=== PATIENT | female | born 1945 | race Caucasian/White ===

== ENCOUNTER 2022-03-06 23:54 | Inpatient (IN) | payer MEDICARE, MEDICAID ==
[~2022-03-06] VITALS: Ht 162.6 cm; Wt 87.1 kg
[~2022-03-06 23:54] MED LIST: ACET-784 PO; DIVA-80 PO; GLIP5TAB12 PO; INSNOV SQ; METF-446 PO; METO-558 PO; OMEP20 PO; OXYB10TA4 PO; SIMV10TA97 PO; TRAZ-186 PO
[2022-03-07 00:30] LABS: BASOPHILS % (AUTO) 0.7 % (0.0-2.0); EOSINOPHILS % (AUTO) 3.2 % (1.0-6.0); HEMATOCRIT 26.8 % (36-46); HEMOGLOBIN 8.9 g/dL (12.0-16.0); LYMPHOCYTES # (AUTO) 3.1 K/uL (1.0-4.8); LYMPHOCYTES % (AUTO) 33.6 % (22.0-44.0); MEAN CORPUSCULAR HEMOGLOBIN 29.7 pg (26.0-34.0); MEAN CORPUSCULAR VOLUME 90 fL (80-100); MONOCYTES # (AUTO) 0.6 K/uL (0.1-1.0); NEUTROPHILS # (AUTO) 5.2 K/uL (1.8-7.7); NEUTROPHILS % (AUTO) 56.5 % (40.0-70.0); PLATELET COUNT (AUTO) 321 K/uL (150-450); RED BLOOD CELL COUNT(AUTO) 2.98 MIL/uL (4.00-5.20); RED CELL DISTRIBUTION WIDTH 14.5 % (11.5-14.5)
[2022-03-07] MEDS ORDERED: RIVA20TA PO (00:32)
[2022-03-07] MEDS ORDERED: INSLAN SQ (00:32)
[2022-03-07] MEDS ORDERED: FAMO20 PO (00:32)
[2022-03-07] MEDS ORDERED: FOLI-130 PO (00:32)
[2022-03-07] MEDS ORDERED: SENN-31 PO (00:32)
[2022-03-07] MEDS ORDERED: THIA100T80 PO (00:32)
[2022-03-07] MEDS ORDERED: ARIP5TAB37 PO (00:32)
[2022-03-07] MEDS ORDERED: INSU100V39 SQ (00:32)
[2022-03-07] MEDS ORDERED: DOCU-350 PO (00:32)
[2022-03-07] MEDS ORDERED: ESCI-8 PO (00:32)
[2022-03-07] MEDS ORDERED: EMPA10TA PO (00:32)
[2022-03-07] MEDS ORDERED: ALLO-45 PO (00:32)
[2022-03-07] MEDS ORDERED: CHOL500013 PO (00:32)
[2022-03-07] MEDS ORDERED: CYAN500T56 PO (00:32)
[2022-03-07] MEDS ORDERED: SIMV-261 PO (00:32)
[2022-03-07] MEDS ORDERED: FERR325T27 PO (00:32)
[2022-03-07 00:45] LABS: ALANINE AMINOTRANSFERASE 29 U/L (12-78); ALBUMIN 2.9 g/dL (3.4-5.0); ALKALINE PHOSPHATASE 110 U/L (46-116); ANION GAP 10 mmol/L (8-16); ASPARTATE AMINOTRANSFERASE 12 U/L (15-37); BILIRUBIN,TOTAL 0.1 mg/dL (0.1-1.0); CARBON DIOXIDE 20 mmol/L (22-29); CHLORIDE 106 mmol/L (98-107); CREATININE 0.87 mg/dL (0.60-1.30); GLUCOSE,RANDOM 133 mg/dL (70-110); PHOSPHORUS 3.9 mg/dL (2.5-4.9); SODIUM SERUM 136 mmol/L (136-145); UREA NITROGEN, BLOOD 42 mg/dL (7-18)
[2022-03-07 00:51] LABS: GLOMERULAR FILTR. RATE CALC > 60 mL/min (>60)
[2022-03-07 00:52] LABS: POTASSIUM 6.3 mmol/L (3.5-5.1)
[2022-03-07] MEDS ORDERED: CALCIUM GLUCONATE 100 MG/ML 10 ML IVP ONE ×3 (01:00→13:45)
[2022-03-07] MEDS ORDERED: INSULIN REGULAR, HUMAN 100 UNITS/ML IVP ONE ×2 (01:00→09:45)
[2022-03-07] MEDS ORDERED: FUROSEMIDE 20 MG/2 ML VIAL IVP ONE (01:00)
[2022-03-07] MEDS ORDERED: DEXTROSE 50%-WATER 25 GM/50 ML SYRINGE IVP ONE ×2 (01:00→09:45)
[2022-03-07] MEDS ORDERED: ALBUTEROL SULFATE 5 MG/ML 20 ML NEB SOLN [BULK] NEB ONE ×2 (01:00→09:45)
[2022-03-07 01:24] LABS: COVID AG,FIA SOURCE NASAL SWAB
[2022-03-07 01:42] LABS: INFLUENZA TYPE A NEGATIVE FOR TYPE A (NEGATIVE); INFLUENZA TYPE B NEGATIVE FOR TYPE B (NEGATIVE)
[2022-03-07] MEDS ORDERED: 0.9% SODIUM CHLORIDE 10 ML SYRINGE IVP PRN (02:00)
[2022-03-07] MEDS ORDERED: ONDANSETRON HCL 4 MG/2 ML VIAL IVP PRN ×2 (02:00→02:45)
[2022-03-07] MEDS ORDERED: ONDANSETRON HCL 4 MG/2 ML VIAL IVP ONE (02:00)
[2022-03-07] MEDS ORDERED: ACETAMINOPHEN 325 MG TABLET PO PRN (02:00)
[2022-03-07] MEDS ORDERED: DEXTROSE 50%-WATER 25 GM/50 ML SYRINGE IVP PRN (03:00)
[2022-03-07 03:14] VITALS: BP 108/50
[2022-03-07] MEDS: SODIUM CHLORIDE 0.9% 1,000 ML IV SCH ×2 (03:49→17:53)
[2022-03-07] MEDS: INSULIN LISPRO 100 UNITS/ML SQ PRN ×4 (06:37→21:19)
[2022-03-07 07:44] VITALS: BP 118/76
[2022-03-07] MEDS ORDERED: HEPARIN SODIUM,PORCINE 5,000 UNITS/ML VIAL SQ SCH (08:00)
[2022-03-07] MEDS: FAMOTIDINE 20 MG TABLET PO SCH ×2 (08:09→21:27)
[2022-03-07] MEDS: FOLIC ACID 1 MG TABLET PO SCH (08:09)
[2022-03-07] MEDS: FERROUS SULFATE 325 MG EC TABLET PO SCH ×3 (08:09→17:52)
[2022-03-07] MEDS: DOCUSATE SODIUM 250 MG CAPSULE PO SCH ×2 (08:09→21:28)
[2022-03-07] MEDS: THIAMINE 100 MG TABLET PO SCH ×2 (08:09→21:27)
[2022-03-07 08:10] LABS: % IRON SATURATION 15.9 % (22-44)
[2022-03-07] MEDS: OXYBUTYNIN CHLORIDE 5 MG ER TABLET PO SCH (08:10)
[2022-03-07] MEDS: CYANOCOBALAMIN 500 MCG TABLET PO SCH (08:10)
[2022-03-07] MEDS: ALLOPURINOL 300 MG TABLET PO SCH (08:10)
[2022-03-07] MEDS: SENNA/DOCUSATE SODIUM 8.6-50 MG TABLET PO SCH ×2 (08:11→21:28)
[2022-03-07] MEDS: ESCITALOPRAM OXALATE 10 MG TABLET PO SCH (08:11)
[2022-03-07 08:17] LABS: CALCIUM, TOTAL 9.3 mg/dL (8.8-10.5); CREATININE 0.95 mg/dL (0.60-1.30)
[2022-03-07 08:24] LABS: POTASSIUM 6.8 mmol/L (3.5-5.1)
[2022-03-07] MEDS ORDERED: SODIUM POLYSTYRENE SULFONATE 15 GM/60 ML SUSPENSION BOTTLE PO ONE (09:45)
[2022-03-07] MEDS ORDERED: ALBUTEROL SULFATE 2.5 MG/0.5 ML NEB SOLUTION NEB ONE (10:15)
[2022-03-07] MEDS ORDERED: 0.9% SODIUM CHLORIDE 5 ML NEB SOLUTION NEB ONE (10:36)
[2022-03-07 11:19] VITALS: BP 112/66
[2022-03-07 11:57] LABS: GLUCOMETER DEV NAME(LOC) 5S.1B; GLUCOSE,POINT OF CARE 195 MG/DL (70-110)
[2022-03-07 11:57] LABS: GLUCOMETER DEV NAME(LOC) 5S.1B; GLUCOSE,POINT OF CARE 147 MG/DL (70-110)
[2022-03-07] MEDS: INSULIN GLARGINE,HUM.REC.ANLOG 100 UNITS/ML SQ SCH (12:56)
[2022-03-07] MEDS: MAGNESIUM CITRATE 300 ML ORAL SOLUTION PO SCH ×2 (13:01→21:28)
[2022-03-07 13:26] LABS: CALCIUM, TOTAL 9.2 mg/dL (8.8-10.5); CREATININE 1.05 mg/dL (0.60-1.30)
[2022-03-07 13:29] LABS: POTASSIUM 6.8 mmol/L (3.5-5.1)
[2022-03-07] MEDS ORDERED: SODIUM ZIRCONIUM CYCLOSILICATE 5 GM POWDER PACKET PO ONE (13:45)
[2022-03-07 16:04] VITALS: BP 122/59
[2022-03-07] MEDS: RIVAROXABAN 20 MG TABLET PO SCH (17:52)
[2022-03-07 18:21] LABS: GLUCOMETER DEV NAME(LOC) 5N.3; GLUCOSE,POINT OF CARE 282 MG/DL (70-110)
[2022-03-07 18:21] LABS: GLUCOMETER DEV NAME(LOC) 5N.3; GLUCOSE,POINT OF CARE 185 MG/DL (70-110)
[2022-03-07 18:25] LABS: CALCIUM, TOTAL 9.3 mg/dL (8.8-10.5); POTASSIUM 5.9 mmol/L (3.5-5.1)
[2022-03-07 18:35] LABS: CREATININE,URINE RANDOM 40.9 mg/dL (30.0-125.0)
[2022-03-07 20:38] VITALS: BP 131/63
[2022-03-07] MEDS: TraZODone HCL 100 MG TABLET PO SCH (21:27)
[2022-03-07] MEDS: ARIPiprazole 5 MG TABLET PO SCH (21:27)
[2022-03-07] MEDS: METOPROLOL SUCCINATE 50 MG ER TABLET PO SCH (21:28)
[2022-03-07] MEDS: SIMVASTATIN 40 MG TABLET PO SCH (21:28)
[2022-03-07 23:11] LABS: GLUCOMETER DEV NAME(LOC) 5S.1B; GLUCOSE,POINT OF CARE 162 MG/DL (70-110)
[2022-03-08 00:30] VITALS: BP 126/60
[2022-03-08 04:25] VITALS: BP 124/64
[2022-03-08 06:59] LABS: BASOPHILS % (AUTO) 0.6 % (0.0-2.0); EOSINOPHILS % (AUTO) 3.3 % (1.0-6.0); HEMATOCRIT 24.6 % (36-46); HEMOGLOBIN 8.2 g/dL (12.0-16.0); LYMPHOCYTES # (AUTO) 2.6 K/uL (1.0-4.8); LYMPHOCYTES % (AUTO) 35.4 % (22.0-44.0); MEAN CORPUSCULAR HEMOGLOBIN 29.8 pg (26.0-34.0); MEAN CORPUSCULAR HGB CONC 33.2 G/dL (31.0-37.0); MEAN CORPUSCULAR VOLUME 90 fL (80-100); MONOCYTES # (AUTO) 0.5 K/uL (0.1-1.0); MONOCYTES % (AUTO) 7.1 % (2.0-9.0); NEUTROPHILS % (AUTO) 53.6 % (40.0-70.0); PLATELET COUNT (AUTO) 304 K/uL (150-450); RED BLOOD CELL COUNT(AUTO) 2.74 MIL/uL (4.00-5.20); RED CELL DISTRIBUTION WIDTH 14.8 % (11.5-14.5)
[2022-03-08 07:20] VITALS: BP 119/77
[2022-03-08 07:24] LABS: ALANINE AMINOTRANSFERASE 29 U/L (12-78); ALBUMIN 2.4 g/dL (3.4-5.0); ALKALINE PHOSPHATASE 93 U/L (46-116); ANION GAP 6 mmol/L (8-16); ASPARTATE AMINOTRANSFERASE 17 U/L (15-37); BILIRUBIN,TOTAL 0.1 mg/dL (0.1-1.0); CALCIUM, TOTAL 8.3 mg/dL (8.8-10.5); CARBON DIOXIDE 25 mmol/L (22-29); CHLORIDE 109 mmol/L (98-107); CREATININE 0.77 mg/dL (0.60-1.30); GLOMERULAR FILTR. RATE CALC > 60 mL/min (>60); GLUCOSE,RANDOM 128 mg/dL (70-110); POTASSIUM 5.2 mmol/L (3.5-5.1); SODIUM SERUM 140 mmol/L (136-145); TOTAL PROTEIN, SERUM 6.1 g/dL (6.4-8.2); UREA NITROGEN, BLOOD 30 mg/dL (7-18)
[2022-03-08 07:34] LABS: LACTATE DEHYDROGENASE 109 U/L (81-234)
[2022-03-08] MEDS ORDERED: SODIUM ZIRCONIUM CYCLOSILICATE 5 GM POWDER PACKET PO ONE (09:00)
[2022-03-08] MEDS: ALLOPURINOL 300 MG TABLET PO SCH (09:07)
[2022-03-08] MEDS: DOCUSATE SODIUM 250 MG CAPSULE PO SCH ×2 (09:07→21:18)
[2022-03-08] MEDS: FAMOTIDINE 20 MG TABLET PO SCH ×2 (09:08→21:17)
[2022-03-08] MEDS: FERROUS SULFATE 325 MG EC TABLET PO SCH ×3 (09:08→17:58)
[2022-03-08] MEDS: ESCITALOPRAM OXALATE 10 MG TABLET PO SCH (09:08)
[2022-03-08] MEDS: THIAMINE 100 MG TABLET PO SCH ×2 (09:09→21:18)
[2022-03-08] MEDS: SENNA/DOCUSATE SODIUM 8.6-50 MG TABLET PO SCH ×2 (09:09→21:00)
[2022-03-08] MEDS: OXYBUTYNIN CHLORIDE 5 MG ER TABLET PO SCH (09:09)
[2022-03-08] MEDS: FOLIC ACID 1 MG TABLET PO SCH (09:09)
[2022-03-08] MEDS: INSULIN GLARGINE,HUM.REC.ANLOG 100 UNITS/ML SQ SCH (09:19)
[2022-03-08] MEDS: CYANOCOBALAMIN 500 MCG TABLET PO SCH (09:26)
[2022-03-08] MEDS: ACETAMINOPHEN 325 MG TABLET PO PRN (11:11)
[2022-03-08 11:41] LABS: GLUCOMETER DEV NAME(LOC) 5S.2B; GLUCOSE,POINT OF CARE 202 MG/DL (70-110)
[2022-03-08 11:41] LABS: GLUCOMETER DEV NAME(LOC) 5S.2B; GLUCOSE,POINT OF CARE 128 MG/DL (70-110)
[2022-03-08] MEDS: MAGNESIUM CITRATE 300 ML ORAL SOLUTION PO SCH (11:46)
[2022-03-08] MEDS: INSULIN LISPRO 100 UNITS/ML SQ PRN ×3 (11:49→21:37)
[2022-03-08 11:55] VITALS: BP 116/55
[2022-03-08 16:24] VITALS: BP 99/40
[2022-03-08] MEDS: RIVAROXABAN 20 MG TABLET PO SCH (17:58)
[2022-03-08 20:54] VITALS: BP 102/44
[2022-03-08] MEDS: METOPROLOL SUCCINATE 50 MG ER TABLET PO SCH ×2 (21:00→21:17)
[2022-03-08] MEDS: TraZODone HCL 100 MG TABLET PO SCH (21:18)
[2022-03-08] MEDS: ARIPiprazole 5 MG TABLET PO SCH (21:18)
[2022-03-08] MEDS: SIMVASTATIN 40 MG TABLET PO SCH (21:18)
[2022-03-09] VITALS (7 sets, daily range): BP systolic 96–120; BP diastolic 45–71
[2022-03-09 04:52] LABS: GLUCOMETER DEV NAME(LOC) 5N.1C; GLUCOSE,POINT OF CARE 279 MG/DL (70-110)
[2022-03-09 04:52] LABS: GLUCOMETER DEV NAME(LOC) 5N.1C; GLUCOSE,POINT OF CARE 170 MG/DL (70-110)
[2022-03-09 06:16] LABS: GLUCOMETER DEV NAME(LOC) 5N.3; GLUCOSE,POINT OF CARE 187 MG/DL (70-110)
[2022-03-09] MEDS: INSULIN LISPRO 100 UNITS/ML SQ PRN ×4 (06:33→21:37)
[2022-03-09 07:06] LABS: ANION GAP 6 mmol/L (8-16); CALCIUM, TOTAL 8.9 mg/dL (8.8-10.5); CARBON DIOXIDE 26 mmol/L (22-29); CHLORIDE 107 mmol/L (98-107); CREATININE 0.74 mg/dL (0.60-1.30); GLUCOSE,RANDOM 163 mg/dL (70-110); POTASSIUM 4.9 mmol/L (3.5-5.1); SODIUM SERUM 139 mmol/L (136-145); UREA NITROGEN, BLOOD 30 mg/dL (7-18)
[2022-03-09 07:06] LABS: GLUCOMETER DEV NAME(LOC) 5S.1B; GLUCOSE,POINT OF CARE 165 MG/DL (70-110)
[2022-03-09 07:07] LABS: GLOMERULAR FILTR. RATE CALC > 60 mL/min (>60)
[2022-03-09] MEDS: SENNA/DOCUSATE SODIUM 8.6-50 MG TABLET PO SCH ×2 (08:39→21:36)
[2022-03-09] MEDS: CYANOCOBALAMIN 500 MCG TABLET PO SCH (08:39)
[2022-03-09] MEDS: OXYBUTYNIN CHLORIDE 5 MG ER TABLET PO SCH (08:39)
[2022-03-09] MEDS: DOCUSATE SODIUM 250 MG CAPSULE PO SCH ×2 (08:40→21:36)
[2022-03-09] MEDS: THIAMINE 100 MG TABLET PO SCH ×2 (08:40→21:36)
[2022-03-09] MEDS: FAMOTIDINE 20 MG TABLET PO SCH ×2 (08:40→21:36)
[2022-03-09] MEDS: FERROUS SULFATE 325 MG EC TABLET PO SCH ×3 (08:40→17:50)
[2022-03-09] MEDS: ESCITALOPRAM OXALATE 10 MG TABLET PO SCH (08:40)
[2022-03-09] MEDS: FOLIC ACID 1 MG TABLET PO SCH (08:40)
[2022-03-09] MEDS: INSULIN GLARGINE,HUM.REC.ANLOG 100 UNITS/ML SQ SCH (08:41)
[2022-03-09] MEDS: ALLOPURINOL 300 MG TABLET PO SCH (08:45)
[2022-03-09] MEDS: RIVAROXABAN 20 MG TABLET PO SCH (17:50)
[2022-03-09 18:37] LABS: GLUCOMETER DEV NAME(LOC) 5S.1B; GLUCOSE,POINT OF CARE 170 MG/DL (70-110)
[2022-03-09 18:41] LABS: GLUCOMETER DEV NAME(LOC) 5S.2B; GLUCOSE,POINT OF CARE 295 MG/DL (70-110)
[2022-03-09 18:41] LABS: GLUCOMETER DEV NAME(LOC) 5S.2B; GLUCOSE,POINT OF CARE 217 MG/DL (70-110)
[2022-03-09] MEDS: TraZODone HCL 100 MG TABLET PO SCH (21:36)
[2022-03-09] MEDS: ARIPiprazole 5 MG TABLET PO SCH (21:36)
[2022-03-09] MEDS: SIMVASTATIN 40 MG TABLET PO SCH (21:36)
[2022-03-09] MEDS: METOPROLOL SUCCINATE 50 MG ER TABLET PO SCH (21:38)
[2022-03-09 23:26] LABS: GLUCOMETER DEV NAME(LOC) 5N.1C; GLUCOSE,POINT OF CARE 233 MG/DL (70-110)
[2022-03-10 03:36] VITALS: BP 122/72
[2022-03-10 06:51] LABS: GLUCOMETER DEV NAME(LOC) 5N.1C; GLUCOSE,POINT OF CARE 142 MG/DL (70-110)
[2022-03-10 07:11] VITALS: BP 117/50
[2022-03-10] MEDS: DOCUSATE SODIUM 250 MG CAPSULE PO SCH ×2 (08:23→21:31)
[2022-03-10] MEDS: THIAMINE 100 MG TABLET PO SCH ×2 (08:23→21:30)
[2022-03-10] MEDS: SENNA/DOCUSATE SODIUM 8.6-50 MG TABLET PO SCH ×2 (08:23→21:31)
[2022-03-10] MEDS: ESCITALOPRAM OXALATE 10 MG TABLET PO SCH (08:24)
[2022-03-10] MEDS: FOLIC ACID 1 MG TABLET PO SCH (08:25)
[2022-03-10] MEDS: FAMOTIDINE 20 MG TABLET PO SCH ×2 (08:25→21:31)
[2022-03-10] MEDS: OXYBUTYNIN CHLORIDE 5 MG ER TABLET PO SCH (08:25)
[2022-03-10] MEDS: ALLOPURINOL 300 MG TABLET PO SCH (08:25)
[2022-03-10] MEDS: CYANOCOBALAMIN 500 MCG TABLET PO SCH (08:25)
[2022-03-10] MEDS: FERROUS SULFATE 325 MG EC TABLET PO SCH ×3 (08:25→17:48)
[2022-03-10] MEDS: INSULIN GLARGINE,HUM.REC.ANLOG 100 UNITS/ML SQ SCH (08:27)
[2022-03-10 11:24] VITALS: BP 114/48
[2022-03-10] MEDS: INSULIN LISPRO 100 UNITS/ML SQ PRN ×3 (12:22→17:50)
[2022-03-10] MEDS: ACETAMINOPHEN 325 MG TABLET PO PRN ×2 (14:39→21:30)
[2022-03-10 15:23] VITALS: BP 129/50
[2022-03-10] MEDS: RIVAROXABAN 20 MG TABLET PO SCH (17:57)
[2022-03-10 20:12] VITALS: BP 136/65
[2022-03-10 20:31] LABS: GLUCOMETER DEV NAME(LOC) 5N.1C; GLUCOSE,POINT OF CARE 196 MG/DL (70-110)
[2022-03-10 20:56] LABS: GLUCOMETER DEV NAME(LOC) 5S.1B; GLUCOSE,POINT OF CARE 285 MG/DL (70-110)
[2022-03-10] MEDS: METOPROLOL SUCCINATE 50 MG ER TABLET PO SCH (21:29)
[2022-03-10] MEDS: TraZODone HCL 100 MG TABLET PO SCH (21:29)
[2022-03-10] MEDS: ETHYL ALCOHOL 62% ANTISEPTIC NASAL SANITIZER 0.6 ML AMPUL NASAL SCH (21:29)
[2022-03-10] MEDS: ARIPiprazole 5 MG TABLET PO SCH (21:29)
[2022-03-10] MEDS: SIMVASTATIN 40 MG TABLET PO SCH (21:31)
[2022-03-11 00:04] VITALS: BP 126/55
[2022-03-11 04:23] VITALS: BP 113/61
[2022-03-11 08:09] VITALS: BP 117/57
[2022-03-11] MEDS: DOCUSATE SODIUM 250 MG CAPSULE PO SCH ×2 (09:53→20:30)
[2022-03-11] MEDS: OXYBUTYNIN CHLORIDE 5 MG ER TABLET PO SCH (09:53)
[2022-03-11] MEDS: SENNA/DOCUSATE SODIUM 8.6-50 MG TABLET PO SCH ×2 (09:53→20:31)
[2022-03-11] MEDS: ALLOPURINOL 300 MG TABLET PO SCH (09:53)
[2022-03-11] MEDS: FERROUS SULFATE 325 MG EC TABLET PO SCH ×3 (09:53→17:49)
[2022-03-11] MEDS: ETHYL ALCOHOL 62% ANTISEPTIC NASAL SANITIZER 0.6 ML AMPUL NASAL SCH ×2 (09:54→20:30)
[2022-03-11] MEDS: FOLIC ACID 1 MG TABLET PO SCH (09:54)
[2022-03-11] MEDS: FAMOTIDINE 20 MG TABLET PO SCH ×2 (09:54→20:31)
[2022-03-11] MEDS: CYANOCOBALAMIN 500 MCG TABLET PO SCH (09:54)
[2022-03-11] MEDS: THIAMINE 100 MG TABLET PO SCH ×2 (09:54→20:31)
[2022-03-11] MEDS: ESCITALOPRAM OXALATE 10 MG TABLET PO SCH (09:54)
[2022-03-11] MEDS: INSULIN GLARGINE,HUM.REC.ANLOG 100 UNITS/ML SQ SCH (09:59)
[2022-03-11] MEDS: INSULIN LISPRO 100 UNITS/ML SQ PRN ×3 (11:54→21:27)
[2022-03-11 16:04] VITALS: BP 117/51
[2022-03-11 16:15] LABS: APPEARANCE,URINE HAZY (CLEAR); BILIRUBIN,URINE NEGATIVE (NEGATIVE); GLUCOSE, URINE (UA) >=1000 mg/dL (NEGATIVE); KETONES,URINE NEGATIVE (NEGATIVE); LEUKOCYTE ESTERASE ,URINE LARGE (NEGATIVE); NITRATE,URINE POSITIVE (NEGATIVE); OCCULT BLOOD,URINE MODERATE (NEGATIVE); PH,URINE 8.5 (5.0-8.0); PROTEIN,URINE 30-70 mg/dL (NEGATIVE); SPECIFIC GRAVITIY, URINE 1.012 (1.003-1.030); UROBILINOGEN,URINE <=1.0 mg/dL (<=1.0)
[2022-03-11 16:21] LABS: BACTERIA,URINE Many /HPF (None Seen); RBC,URINE 26-50 /HPF (0-2); SQUAMOUS EPITHELIAL CELL,UR Rare /LPF (None Seen); TRIPLE PHOSPHATE CRYSTAL,UR Moderate /LPF (None Seen); WBC,URINE 26-50 /HPF (0-5)
[2022-03-11] MEDS: RIVAROXABAN 20 MG TABLET PO SCH (17:49)
[2022-03-11 18:41] LABS: GLUCOMETER DEV NAME(LOC) 5N.3; GLUCOSE,POINT OF CARE 264 MG/DL (70-110)
[2022-03-11 18:41] LABS: GLUCOMETER DEV NAME(LOC) 5N.3; GLUCOSE,POINT OF CARE 292 MG/DL (70-110)
[2022-03-11 20:00] VITALS: BP 138/64
[2022-03-11] MEDS: ARIPiprazole 5 MG TABLET PO SCH (20:31)
[2022-03-11] MEDS: TraZODone HCL 100 MG TABLET PO SCH (20:31)
[2022-03-11] MEDS: SIMVASTATIN 40 MG TABLET PO SCH (20:31)
[2022-03-12 00:15] VITALS: BP 128/74
[2022-03-12 00:41] LABS: GLUCOMETER DEV NAME(LOC) 5S.1B; GLUCOSE,POINT OF CARE 217 MG/DL (70-110)
[2022-03-12 00:41] LABS: GLUCOMETER DEV NAME(LOC) 5S.1B; GLUCOSE,POINT OF CARE 368 MG/DL (70-110)
[2022-03-12 03:21] LABS: GLUCOMETER DEV NAME(LOC) 5N.1C; GLUCOSE,POINT OF CARE 138 MG/DL (70-110)
[2022-03-12 04:30] VITALS: BP 129/64
[2022-03-12 07:21] LABS: GLUCOMETER DEV NAME(LOC) 5S.1B; GLUCOSE,POINT OF CARE 137 MG/DL (70-110)
[2022-03-12 07:43] VITALS: BP 134/54
[2022-03-12] MEDS: CYANOCOBALAMIN 500 MCG TABLET PO SCH (08:23)
[2022-03-12] MEDS: OXYBUTYNIN CHLORIDE 5 MG ER TABLET PO SCH (08:23)
[2022-03-12] MEDS: FOLIC ACID 1 MG TABLET PO SCH (08:23)
[2022-03-12] MEDS: ETHYL ALCOHOL 62% ANTISEPTIC NASAL SANITIZER 0.6 ML AMPUL NASAL SCH ×2 (08:23→21:24)
[2022-03-12] MEDS: ALLOPURINOL 300 MG TABLET PO SCH (08:23)
[2022-03-12] MEDS: FERROUS SULFATE 325 MG EC TABLET PO SCH ×3 (08:23→17:35)
[2022-03-12] MEDS: FAMOTIDINE 20 MG TABLET PO SCH ×2 (08:23→21:23)
[2022-03-12] MEDS: SENNA/DOCUSATE SODIUM 8.6-50 MG TABLET PO SCH ×2 (08:23→21:23)
[2022-03-12] MEDS: THIAMINE 100 MG TABLET PO SCH ×2 (08:24→21:23)
[2022-03-12] MEDS: DOCUSATE SODIUM 250 MG CAPSULE PO SCH ×2 (08:24→21:24)
[2022-03-12] MEDS: ESCITALOPRAM OXALATE 10 MG TABLET PO SCH (08:24)
[2022-03-12] MEDS: INSULIN GLARGINE,HUM.REC.ANLOG 100 UNITS/ML SQ SCH (08:30)
[2022-03-12 11:12] VITALS: BP 117/57
[2022-03-12] MEDS: CIPROFLOXACIN HCL 500 MG TABLET PO SCH ×2 (11:56→21:23)
[2022-03-12] MEDS: INSULIN LISPRO 100 UNITS/ML SQ PRN ×3 (11:59→21:25)
[2022-03-12 14:39] LABS: ANION GAP 8 mmol/L (8-16); CARBON DIOXIDE 25 mmol/L (22-29); CHLORIDE 103 mmol/L (98-107); CREATININE 0.86 mg/dL (0.60-1.30); GLUCOSE,RANDOM 314 mg/dL (70-110); PHOSPHORUS 3.8 mg/dL (2.5-4.9); POTASSIUM 4.1 mmol/L (3.5-5.1); SODIUM SERUM 136 mmol/L (136-145); UREA NITROGEN, BLOOD 26 mg/dL (7-18)
[2022-03-12 14:40] LABS: GLOMERULAR FILTR. RATE CALC > 60 mL/min (>60)
[2022-03-12 15:46] VITALS: BP 125/58
[2022-03-12] MEDS: RIVAROXABAN 20 MG TABLET PO SCH (17:36)
[2022-03-12 18:01] LABS: GLUCOMETER DEV NAME(LOC) 5S.2B; GLUCOSE,POINT OF CARE 176 MG/DL (70-110)
[2022-03-12 18:02] LABS: GLUCOMETER DEV NAME(LOC) 5S.2B; GLUCOSE,POINT OF CARE 252 MG/DL (70-110)
[2022-03-12 20:03] VITALS: BP 118/52
[2022-03-12 20:12] LABS: GLUCOMETER DEV NAME(LOC) 5N.3; GLUCOSE,POINT OF CARE 236 MG/DL (70-110)
[2022-03-12] MEDS: SIMVASTATIN 40 MG TABLET PO SCH (21:23)
[2022-03-12] MEDS: TraZODone HCL 100 MG TABLET PO SCH (21:23)
[2022-03-12] MEDS: ARIPiprazole 5 MG TABLET PO SCH (21:24)
[2022-03-12 21:56] LABS: GLUCOMETER DEV NAME(LOC) 5N.1C; GLUCOSE,POINT OF CARE 224 MG/DL (70-110)
[2022-03-13] VITALS (7 sets, daily range): BP systolic 107–131; BP diastolic 48–78
[2022-03-13] MEDS: INSULIN LISPRO 100 UNITS/ML SQ PRN ×4 (06:14→21:12)
[2022-03-13 06:31] LABS: BASOPHILS % (AUTO) 0.8 % (0.0-2.0); EOSINOPHILS % (AUTO) 3.6 % (1.0-6.0); HEMATOCRIT 27.2 % (36-46); LYMPHOCYTES # (AUTO) 2.7 K/uL (1.0-4.8); LYMPHOCYTES % (AUTO) 35.3 % (22.0-44.0); MEAN CORPUSCULAR HEMOGLOBIN 29.6 pg (26.0-34.0); MEAN CORPUSCULAR VOLUME 90 fL (80-100); MONOCYTES # (AUTO) 0.5 K/uL (0.1-1.0); MONOCYTES % (AUTO) 6.1 % (2.0-9.0); NEUTROPHILS # (AUTO) 4.2 K/uL (1.8-7.7); NEUTROPHILS % (AUTO) 54.2 % (40.0-70.0); PLATELET COUNT (AUTO) 338 K/uL (150-450); RED BLOOD CELL COUNT(AUTO) 3.04 MIL/uL (4.00-5.20); RED CELL DISTRIBUTION WIDTH 14.3 % (11.5-14.5)
[2022-03-13 06:46] LABS: GLUCOMETER DEV NAME(LOC) 5N.3; GLUCOSE,POINT OF CARE 183 MG/DL (70-110)
[2022-03-13 06:50] LABS: MAGNESIUM 1.5 mg/dL (1.80-2.40); PHOSPHORUS 4.2 mg/dL (2.5-4.9)
[2022-03-13] MEDS ORDERED: MAGNESIUM SULFATE 2 GM/WATER 50 ML IV ONE (08:30)
[2022-03-13] MEDS ORDERED: MAGNESIUM OXIDE 400 MG TABLET PO ONE ×2 (08:45→15:15)
[2022-03-13 09:35] LABS: CALCIUM, TOTAL 9.7 mg/dL (8.8-10.5); CREATININE 1.07 mg/dL (0.60-1.30); POTASSIUM 4.8 mmol/L (3.5-5.1)
[2022-03-13] MEDS: ETHYL ALCOHOL 62% ANTISEPTIC NASAL SANITIZER 0.6 ML AMPUL NASAL SCH ×2 (09:50→21:03)
[2022-03-13] MEDS: FERROUS SULFATE 325 MG EC TABLET PO SCH ×3 (09:50→17:56)
[2022-03-13] MEDS: CIPROFLOXACIN HCL 500 MG TABLET PO SCH ×2 (09:50→21:02)
[2022-03-13] MEDS: OXYBUTYNIN CHLORIDE 5 MG ER TABLET PO SCH (09:50)
[2022-03-13] MEDS: FOLIC ACID 1 MG TABLET PO SCH (10:05)
[2022-03-13] MEDS: ESCITALOPRAM OXALATE 10 MG TABLET PO SCH (10:05)
[2022-03-13] MEDS: FAMOTIDINE 20 MG TABLET PO SCH ×2 (10:05→21:02)
[2022-03-13] MEDS: DOCUSATE SODIUM 250 MG CAPSULE PO SCH ×2 (10:05→21:02)
[2022-03-13] MEDS: THIAMINE 100 MG TABLET PO SCH ×2 (10:06→21:02)
[2022-03-13] MEDS: ALLOPURINOL 300 MG TABLET PO SCH (10:06)
[2022-03-13] MEDS: SENNA/DOCUSATE SODIUM 8.6-50 MG TABLET PO SCH ×2 (10:06→21:02)
[2022-03-13] MEDS: CYANOCOBALAMIN 500 MCG TABLET PO SCH (10:06)
[2022-03-13] MEDS ORDERED: MAGNESIUM SULFATE 3 GM in DEXTROSE 5%-WATER 100 ML IV ONE (10:45)
[2022-03-13] MEDS: INSULIN GLARGINE,HUM.REC.ANLOG 100 UNITS/ML SQ SCH (12:30)
[2022-03-13] MEDS: RIVAROXABAN 20 MG TABLET PO SCH (17:56)
[2022-03-13] MEDS ORDERED: BISACODYL 10 MG RECTAL RECTAL SUPPOSITORY PR PRN (20:15)
[2022-03-13] MEDS: TraZODone HCL 100 MG TABLET PO SCH (21:02)
[2022-03-13] MEDS: SIMVASTATIN 40 MG TABLET PO SCH (21:02)
[2022-03-13] MEDS: ARIPiprazole 5 MG TABLET PO SCH (21:03)
[2022-03-13 22:56] LABS: GLUCOMETER DEV NAME(LOC) 5S.1B; GLUCOSE,POINT OF CARE 323 MG/DL (70-110)
[2022-03-13 22:56] LABS: GLUCOMETER DEV NAME(LOC) 5S.1B; GLUCOSE,POINT OF CARE 203 MG/DL (70-110)
[2022-03-13 22:56] LABS: GLUCOMETER DEV NAME(LOC) 5S.1B; GLUCOSE,POINT OF CARE 209 MG/DL (70-110)
[2022-03-14] MEDS: ACETAMINOPHEN 325 MG TABLET PO PRN (00:49)
[2022-03-14 04:16] VITALS: BP 127/74
[2022-03-14 06:01] LABS: BASOPHILS % (AUTO) 0.6 % (0.0-2.0); EOSINOPHILS % (AUTO) 0.5 % (1.0-6.0); HEMOGLOBIN 9.6 g/dL (12.0-16.0); LYMPHOCYTES # (AUTO) 2.5 K/uL (1.0-4.8); MEAN CORPUSCULAR HEMOGLOBIN 29.7 pg (26.0-34.0); MEAN CORPUSCULAR HGB CONC 33.1 G/dL (31.0-37.0); MEAN CORPUSCULAR VOLUME 90 fL (80-100); MONOCYTES # (AUTO) 0.5 K/uL (0.1-1.0); NEUTROPHILS # (AUTO) 7.2 K/uL (1.8-7.7); NEUTROPHILS % (AUTO) 69.9 % (40.0-70.0); PLATELET COUNT (AUTO) 336 K/uL (150-450); RED BLOOD CELL COUNT(AUTO) 3.25 MIL/uL (4.00-5.20); RED CELL DISTRIBUTION WIDTH 14.3 % (11.5-14.5)
[2022-03-14] MEDS: INSULIN LISPRO 100 UNITS/ML SQ PRN ×2 (06:24→12:25)
[2022-03-14 06:32] LABS: MAGNESIUM 1.7 mg/dL (1.80-2.40)
[2022-03-14 06:46] LABS: GLUCOMETER DEV NAME(LOC) 5N.3; GLUCOSE,POINT OF CARE 178 MG/DL (70-110)
[2022-03-14 08:10] VITALS: BP 111/59
[2022-03-14] MEDS: FAMOTIDINE 20 MG TABLET PO SCH (08:53)
[2022-03-14] MEDS: INSULIN GLARGINE,HUM.REC.ANLOG 100 UNITS/ML SQ SCH (08:53)
[2022-03-14] MEDS: OXYBUTYNIN CHLORIDE 5 MG ER TABLET PO SCH (08:53)
[2022-03-14] MEDS: CYANOCOBALAMIN 500 MCG TABLET PO SCH (08:53)
[2022-03-14] MEDS: ETHYL ALCOHOL 62% ANTISEPTIC NASAL SANITIZER 0.6 ML AMPUL NASAL SCH (08:53)
[2022-03-14] MEDS: FERROUS SULFATE 325 MG EC TABLET PO SCH ×2 (08:53→11:37)
[2022-03-14] MEDS: CIPROFLOXACIN HCL 500 MG TABLET PO SCH (08:53)
[2022-03-14] MEDS: DOCUSATE SODIUM 250 MG CAPSULE PO SCH (08:53)
[2022-03-14] MEDS: THIAMINE 100 MG TABLET PO SCH (08:54)
[2022-03-14] MEDS: ALLOPURINOL 300 MG TABLET PO SCH (08:54)
[2022-03-14] MEDS: ESCITALOPRAM OXALATE 10 MG TABLET PO SCH (08:54)
[2022-03-14] MEDS: SENNA/DOCUSATE SODIUM 8.6-50 MG TABLET PO SCH (08:54)
[2022-03-14] MEDS: FOLIC ACID 1 MG TABLET PO SCH (08:54)
[2022-03-14] MEDS ORDERED: MAGNESIUM OXIDE 400 MG TABLET PO ONE ×2 (10:00→16:00)
[2022-03-14 10:52] LABS: GLUCOMETER DEV NAME(LOC) 5N.1C; GLUCOSE,POINT OF CARE 280 MG/DL (70-110)
[2022-03-14 12:16] LABS: GLUCOMETER DEV NAME(LOC) 5S.2B; GLUCOSE,POINT OF CARE 288 MG/DL (70-110)
[2022-03-14] MEDS ORDERED: CIPR500T10 PO (13:53)
[2022-03-14 16:10] VITALS: BP 128/59
== END 2022-03-14 17:05 | DRG 641 ==
LOC: EMS 23:56 → 5S 03-07 02:17
PROVIDERS: ADMIT Internal Medicine; ATTEND Internal Medicine
DX: E87.5 Hyperkalemia (principal); I69.354 Hemiplegia and hemiparesis following cerebral infarction affecting left non-dominant side; E87.2 Acidosis; E11.9 Type 2 diabetes mellitus without complications; D64.9 Anemia, unspecified; E83.42 Hypomagnesemia; F20.9 Schizophrenia, unspecified; I10 Essential (primary) hypertension; K59.00 Constipation, unspecified; I48.91 Unspecified atrial fibrillation; G25.81 Restless legs syndrome; Z20.822 Contact with and (suspected) exposure to COVID-19; E78.5 Hyperlipidemia, unspecified; E78.00 Pure hypercholesterolemia, unspecified; Z82.49 Family history of ischemic heart disease and other diseases of the circulatory system; Z83.3 Family history of diabetes mellitus; Z88.8 Allergy status to other drugs, medicaments and biological substances; Z88.0 Allergy status to penicillin; Z90.710 Acquired absence of both cervix and uterus; Z90.49 Acquired absence of other specified parts of digestive tract
CPT/HCPCS: 76770; 80048; 80053; 81001; 82088; 82271; 82550; 82570; 82728; 82962; 83540; 83550; 83615; 83735; 83935; 84100; 84133; 85025; 85045; 87081; 87086; 87804; 93005; 94640; 97162; 97165; 97530; 97535; 99291; J0610; J1815; J1940; J2405; J3475; J7030; J7060; Q9967; 36415-L1; 36415-TC; J7611; J7613

== ENCOUNTER 2022-07-04 02:53 | Emergency (ER) | payer MEDICARE, MEDICAID ==
[~2022-07-04] VITALS: Ht 160 cm; Wt 77.3 kg
[~2022-07-04 02:53] MED LIST changes: +ALLO-45 PO; +ARIP5TAB37 PO; +CHOL500013 PO; +CIPR500T10 PO; +CYAN500T56 PO; -DIVA-80 PO; +DOCU-350 PO; +EMPA10TA3 PO; +ESCI-8 PO; +FAMO20 PO; +FERR325T27 PO; +FOLI-130 PO; -GLIP5TAB12 PO; +INSLAN SQ; -INSNOV SQ; +INSU100V39 SQ; -OMEP20 PO; +RIVA20TA PO; +SENN-31 PO; +SIMV-261 PO; -SIMV10TA97 PO; +THIA100T80 PO
[2022-07-04] MEDS ORDERED: 0.9% SODIUM CHLORIDE 10 ML SYRINGE IVP PRN (03:45)
[2022-07-04 03:56] LABS: BASOPHILS % (AUTO) 0.5 % (0.0-2.0); EOSINOPHILS % (AUTO) 0.2 % (1.0-6.0); HEMATOCRIT 34.7 % (36-46); HEMOGLOBIN 11.1 g/dL (12.0-16.0); LYMPHOCYTES # (AUTO) 1.2 K/uL (1.0-4.8); MEAN CORPUSCULAR HEMOGLOBIN 28.3 pg (26.0-34.0); MEAN CORPUSCULAR VOLUME 88 fL (80-100); MONOCYTES # (AUTO) 0.9 K/uL (0.1-1.0); MONOCYTES % (AUTO) 6.5 % (2.0-9.0); NEUTROPHILS # (AUTO) 11.2 K/uL (1.8-7.7); NEUTROPHILS % (AUTO) 83.8 % (40.0-70.0); PLATELET COUNT (AUTO) 343 K/uL (150-450); RED BLOOD CELL COUNT(AUTO) 3.92 MIL/uL (4.00-5.20); RED CELL DISTRIBUTION WIDTH 14.8 % (11.5-14.5)
[2022-07-04 04:06] LABS: CALCIUM, TOTAL 9.1 mg/dL (8.8-10.5); CREATININE 1.13 mg/dL (0.60-1.30); POTASSIUM 4.1 mmol/L (3.5-5.1)
[2022-07-04 04:16] LABS: BILIRUBIN,TOTAL 0.3 mg/dL (0.1-1.0); TOTAL PROTEIN, SERUM 7.9 g/dL (6.4-8.2)
[2022-07-04 04:28] LABS: COVID AG,FIA SOURCE NASOPHARYNGEAL
[2022-07-04 04:53] LABS: INFLUENZA TYPE A NEGATIVE FOR TYPE A (NEGATIVE); INFLUENZA TYPE B NEGATIVE FOR TYPE B (NEGATIVE)
[2022-07-04 04:54] LABS: PROTHROMBIN TIME 11.1 SEC (9.4-11.6)
[2022-07-04] MEDS ORDERED: ACETAMINOPHEN 1000 MG/ISO-OSM 100 ML IV ONE (06:15)
[2022-07-04 06:42] LABS: APPEARANCE,URINE TURBID (CLEAR); BILIRUBIN,URINE NEGATIVE (NEGATIVE); GLUCOSE, URINE (UA) >=1000 mg/dL (NEGATIVE); KETONES,URINE NEGATIVE (NEGATIVE); LEUKOCYTE ESTERASE ,URINE LARGE (NEGATIVE); NITRATE,URINE NEGATIVE (NEGATIVE); OCCULT BLOOD,URINE MODERATE (NEGATIVE); PROTEIN,URINE 30-70 mg/dL (NEGATIVE); SPECIFIC GRAVITIY, URINE 1.023 (1.003-1.030); UROBILINOGEN,URINE <=1.0 mg/dL (<=1.0)
[2022-07-04] MEDS ORDERED: LEVOFLOXACIN 750 MG/D5% WATER 150 ML IV ONE (06:45)
[2022-07-04 06:51] LABS: BACTERIA,URINE Many /HPF (None Seen); WBC,URINE >100 /HPF (0-5); YEAST,URINE Many /HPF (None Seen)
[2022-07-04 09:24] VITALS: BP 107/63
== END 2022-07-04 09:43 | disposition short-term general hospital (02) ==
LOC: EMS 02:54
DX: N39.0 Urinary tract infection, site not specified (principal); R50.9 Fever, unspecified; J18.9 Pneumonia, unspecified organism; F41.9 Anxiety disorder, unspecified; F32.A Depression, unspecified; E11.9 Type 2 diabetes mellitus without complications; E78.00 Pure hypercholesterolemia, unspecified; I10 Essential (primary) hypertension; F20.9 Schizophrenia, unspecified; G25.81 Restless legs syndrome; G62.9 Polyneuropathy, unspecified; Z90.89 Acquired absence of other organs; Z90.49 Acquired absence of other specified parts of digestive tract; Z90.710 Acquired absence of both cervix and uterus; Z98.890 Other specified postprocedural states; Z20.822 Contact with and (suspected) exposure to COVID-19; Z88.0 Allergy status to penicillin; Z91.018 Allergy to other foods
CPT/HCPCS: 99285; 96365; 70450; 71045; 87426; 80053; 81001; 83605; 84484; 85025; 85610; 87040; 87205; 87804; 36415; 87086; 87077; 87186; 93005; 96368; J1956; J0131